=== PATIENT | male | born 1960 | race African-American/Black ===

== ENCOUNTER 2021-12-12 20:52 | Emergency (ER) | payer OTHER ==
[2021-12-12] MEDS ORDERED: Fentanyl 100 MCG/2 ML VIAL ONE ×2 (21:50→22:48)
== END 2021-12-13 00:06 | disposition home or self-care (01) ==
LOC: CSHERS 20:52
DX: S80.10XA Contusion of unspecified lower leg, initial encounter (principal); R51.9 Headache, unspecified; M54.2 Cervicalgia; M25.562 Pain in left knee; M25.561 Pain in right knee; V49.40XA Driver injured in collision with unspecified motor vehicles in traffic accident, initial encounter
CPT/HCPCS: 70450; 72125; 96374; 96376; J3010

== ENCOUNTER 2023-02-09 10:07 | Emergency (ER) | payer OTHER ==
[2023-02-09] MEDS ORDERED: methylPREDNISolone Sod Succ/PF 125 MG/2 ML VIAL ONE (10:41)
[2023-02-09] MEDS ORDERED: Ipratropium/Albuterol 3 ML NEB ONE (10:41)
[2023-02-09 11:00] LABS: #Eosinphils 0.3 10x3/uL (0.0-0.5); #Monocytes 0.5 10x3/uL (0.0-1.1); #Neutrophils 4.5 10x3/uL (1.5-8.4); %Basophils 0.6 % (0.0-2.0); %Eosinophils 4.1 % (0.0-6.0); %Lymphocytes 24.8 % (18.0-47.0); %Monocytes 6.9 % (0.0-10.0); %Neutrophils 62.5 % (40.0-75.0); Hemoglobin 13.1 g/dL (13.5-17.5); Mean Corpuscular HGB CONC 31.6 g/dL (32.0-36.0); Mean Corpuscular Hemoglobin 29.6 pg (27.0-33.0); Mean Corpuscular Volume 93.5 fl (81.2-95.1); Platelet Count 269 10x3/uL (150-450); RBC Distribution Width 14.4 % (11.5-14.5); Red Blood Cell (RBC) Count 4.43 10x6/uL (4.32-5.72); White Blood Cell (WBC) Count 7.1 10x3/uL (3.5-10.5)
[2023-02-09 11:17] LABS: Anion Gap 14 mmol/L (10-20); BUN (Urea Nitrogen) 21 mg/dL (8.4-25.7); Calc. Creatinine Clearance 0 mL/min (70-130); Calcium 9.6 mg/dL (7.8-10.44); Carbon Dioxide 22 mmol/L (23-31); Chloride 109 mmol/L (98-107); Estimated GFR 92; Glucose 127 mg/dL (80-115); Magnesium 2.1 mg/dL (1.6-2.6); Sodium 141 mmol/L (136-145)
[2023-02-09] MEDS ORDERED: Magnesium 2 GM/50 ML BAG (IN WATER) ONE (13:01)
== END 2023-02-09 14:43 | disposition home or self-care (01) ==
LOC: CSHERS 10:07
DX: J45.901 Unspecified asthma with (acute) exacerbation (principal); I10 Essential (primary) hypertension; E11.9 Type 2 diabetes mellitus without complications
CPT/HCPCS: 71045; 80048; 83735; 85025; 96365; 96372; J2930; J3475; J7611; J7620